=== PATIENT | male | born 1980 | race Two or more races ===

== ENCOUNTER 2018-10-21 20:20 | Emergency (ER) | payer OTHER ==
[~2018-10-21] VITALS: Ht 182.9 cm; Wt 99.4 kg
--- NOTE | 2018-10-21 20:29 | NUR ---
EKG OBTAINED IN TRIAGE
[2018-10-21] MEDS ORDERED: ALBUTEROL SULFATE 2.5 MG/3 ML NPPB ONE (20:30)
[2018-10-21] MEDS ORDERED: ALBUTEROL SULFATE 2.5 MG/3 ML ONE (20:37)
[2018-10-21] MEDS ORDERED: AZITHROMYCIN 500 MG TABLET PO ONE (21:30)
[2018-10-21] MEDS ORDERED: AZITHROMYCIN 500 MG TABLET ONE (21:39)
[2018-10-21 21:55] VITALS: BP 162/63
== END 2018-10-21 21:58 | disposition home or self-care (01) ==
LOC: ED 21:02
DX: J45.21 Mild intermittent asthma with (acute) exacerbation (principal); J45.31 Mild persistent asthma with (acute) exacerbation; J15.9 Unspecified bacterial pneumonia; Z87.891 Personal history of nicotine dependence
CPT/HCPCS: 71046; 93005; 94640; 99283; J7512; J7613